=== PATIENT | female | born 1965 | race Hispanic/Latino ===

== ENCOUNTER 2018-05-04 18:56 | Emergency (ER) | payer OTHER ==
[2018-05-04] MEDS ORDERED: Ondansetron ODT 4 MG TAB ONE ×2 (19:20→20:16)
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
--- NOTE | 2018-05-04 20:21 | RAD ---
LEFT SHOULDER TWO VIEW 05/04/18 HISTORY: Pain. COMPARISON: None. FINDINGS: No acute displaced fracture or malalignment. Expected very mild degenerative changes at the acromiocl avicular joint. Visualized ribs are intact. IMPRESSION: No acute displaced fracture or malalignment. POS: [facility]
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
== END 2018-05-04 21:24 | disposition home or self-care (01) ==
LOC: ERS 18:56
DX: S16.1XXA Strain of muscle, fascia and tendon at neck level, initial encounter (principal); S70.01XA Contusion of right hip, initial encounter; R91.8 Other nonspecific abnormal finding of lung field; E07.9 Disorder of thyroid, unspecified; E78.5 Hyperlipidemia, unspecified; J45.909 Unspecified asthma, uncomplicated; V43.52XA Car driver injured in collision with other type car in traffic accident, initial encounter; Z79.899 Other long term (current) drug therapy
CPT/HCPCS: 71045; 72125; Q0162